=== PATIENT | female | born 1950 | race Caucasian/White ===

== ENCOUNTER 2016-04-21 10:20 | Day surgery (SDC) | payer BC ==
[~2016-04-21] VITALS: Ht 157.5 cm; Wt 80.0 kg
[~2016-04-21 10:20] MED LIST: LACTATED RINGERS 1,000 ML IV SCH; SODIUM CHLORIDE FLUSH 3 ML SYR IV PRN; ceFAZolin 2,000 MG in WATER (STERILE) FOR INJECTION 20 ML IV SCH
[2016-04-21 10:39] VITALS: BP 116/68
[2016-04-21] MEDS ORDERED: BUPIVACAINE 0.5% (MARCAINE) 10 ML VIAL ONE (10:46)
[2016-04-21] MEDS ORDERED: POVIDONE IODINE 10% OINTMENT (BETADINE) 30 GM TUBE TOP ONE (10:46)
[2016-04-21] MEDS ORDERED: LIDOCAINE 2% (XYLOCAINE) 20 ML VIAL INJ ONE ×2 (10:47→11:29)
[2016-04-21] MEDS ORDERED: DEXAMETHASONE 4 MG/ML (DECADRON) VIAL ONE ×2 (10:47→14:22)
[2016-04-21 10:50] LABS: MEAN CORPUSCULAR HEMOGLOBIN 30.3 PG (26.0-34.0); MEAN CORPUSCULAR HGB CONC 34.5 g/dL (31.0-37.0); MEAN PLATELET VOLUME 9.4 FL (6.0-9.5); WHITE BLOOD COUNT 6.08 10^3uL (4.0-11.0)
[2016-04-21 10:51] LABS: BILIRUBIN,URINE Negative (Negative); CLARITY,URINE Clear; COLOR,URINE Yellow; GLUCOSE, URINE (UA) Negative (Negative); LEUKOCYTE ESTERASE ,URINE Negative (Negative); UROBILINOGEN,URINE 0.2 mg/dL (0.2-1.0)
[2016-04-21] MEDS ORDERED: MIDAZOLAM 2 MG/2 ML (VERSED) VIAL ONE (11:26)
[2016-04-21] MEDS ORDERED: ALFENTANIL 500 MCG/ML (ALFENTA) 5 ML AMP IV ONE (11:27)
[2016-04-21] MEDS ORDERED: ROPIVACAINE 1% 10 MG/ML (NAROPIN) 20 ML AMPUL ONE (11:29)
[2016-04-21] MEDS ORDERED: PROPOFOL 20 ML IV ONE (14:00)
[2016-04-21 14:43] VITALS: BP 132/73
[2016-04-21 15:27] VITALS: BP 137/90
== END 2016-04-21 15:40 | disposition home or self-care (01) ==
LOC: ASC 10:20
PROVIDERS: ATTEND Podiatrist
DX: M20.12 Hallux valgus (acquired), left foot (principal); M92.62 Juvenile osteochondrosis of tarsus, left ankle; I10 Essential (primary) hypertension; E03.9 Hypothyroidism, unspecified; E78.5 Hyperlipidemia, unspecified
CPT/HCPCS: 28119; 28292; 36415; 81003; 85027; 93005; J1100; J2001; J2250; J2795; J7120